=== PATIENT | female | born 2000 | race Caucasian/White ===

== ENCOUNTER 2018-01-24 04:00 | Emergency (ER) | payer MEDICAID, OTHER ==
[~2018-01-24] VITALS: Ht 177.8 cm; Wt 91.0 kg
[2018-01-24 12:15] VITALS: BP 107/62
== END 2018-01-24 12:18 | disposition home or self-care (01) ==
LOC: ER 06:20
DX: O9A.211 Injury, poisoning and certain other consequences of external causes complicating pregnancy, first trimester (principal); R10.30 Lower abdominal pain, unspecified; Z3A.14 14 weeks gestation of pregnancy; W18.2XXA Fall in (into) shower or empty bathtub, initial encounter; Y93.E1 Activity, personal bathing and showering; Y92.091 Bathroom in other non-institutional residence as the place of occurrence of the external cause
CPT/HCPCS: 76801; 81025; 99284

== ENCOUNTER 2019-06-18 15:45 | Emergency (ER) | payer MEDICAID, OTHER ==
[~2019-06-18] VITALS: Ht 180.3 cm; Wt 104.0 kg
[2019-06-18] MEDS ORDERED: SODIUM CHLORIDE 0.9% 1,000 ML IV ONE (16:54)
[2019-06-18 17:23] LABS: BASOPHILS % 0.9 % (0.0-2.0); EOSINOPHILS % 1.8 % (0.0-5.0); HEMATOCRIT. 40.5 % (36.0-48.0); HEMOGLOBIN. 13.8 g/dL (12.0-16.0); LYMPHOCYTES % 25.7 % (20.0-50.0); MEAN CORPUSCULAR HEMOGLOBIN 28.8 pg (28.0-32.0); MEAN CORPUSCULAR VOLUME 84.3 fL (81.0-99.0); MEAN PLATELET VOLUME 8.9 fl (7.4-10.4); MONOCYTES % 6.5 % (2.0-8.0); NEUTROPHILS % 65.1 % (40.0-76.0); PLATELET 265 x1000/uL (130-400); RED CELL DISTRIBUTION WIDTH 14.6 % (11.6-14.6)
[2019-06-18 17:29] LABS: CHLORIDE 106 mEq/L (98-107)
[2019-06-18 17:34] LABS: HCG SCREEN NEGATIVE
[2019-06-18] MEDS ORDERED: KETOROLAC 30MG/ML VIAL IV ONE (17:45)
[2019-06-18 19:50] VITALS: BP 110/69
== END 2019-06-18 19:50 | disposition home or self-care (01) ==
LOC: ER 15:45
DX: R07.89 Other chest pain (principal)
CPT/HCPCS: 36415; 71045; 80053; 81025; 83880; 84484; 84703; 85025; 93005; 99284; J7030; J1885